=== PATIENT | female | born 2000 | race Asian ===

== ENCOUNTER 2022-09-16 10:31 | Outpatient (CLI) | payer OTHER, SELFPAY ==
[2022-09-16 18:38] LABS: Chlamydia DNA Amplified* NOT DETECTED (No Detected); GC DNA Amplified* NOT DETECTED (No Detected)
== END 2022-09-16 10:32 | disposition home or self-care (01) ==
PROVIDERS: Visit Provider Obstetrics & Gynecology
DX: Z11.3 Encounter for screening for infections with a predominantly sexual mode of transmission (principal); Z12.4 Encounter for screening for malignant neoplasm of cervix
CPT/HCPCS: 0353U; 87491; 87591